=== PATIENT | female | born 1975 | race Caucasian/White ===

== ENCOUNTER 2017-09-06 20:33 | Emergency (ER) | payer MEDICARE ==
[~2017-09-06] VITALS: Ht 165.1 cm; Wt 83.9 kg
[2017-09-06] MEDS ORDERED: KETOROLAC TROMETHAMINE 30 MG INJ IM ONE (21:15)
[2017-09-06] MEDS ORDERED: KETOROLAC TROMETHAMINE 30 MG INJ ONE (21:39)
--- NOTE | 2017-09-06 21:42 | NUR ---
Patient discharged to home in stable conditon. Written and verbal after care instructions given. Patient verbalizes understanding of instructions.
== END 2017-09-06 21:44 | disposition home or self-care (01) ==
LOC: ER 20:34
DX: S89.91XA Unspecified injury of right lower leg, initial encounter (principal); M79.7 Fibromyalgia; Z90.49 Acquired absence of other specified parts of digestive tract; M19.90 Unspecified osteoarthritis, unspecified site; W01.0XXA Fall on same level from slipping, tripping and stumbling without subsequent striking against object, initial encounter; Y92.89 Other specified places as the place of occurrence of the external cause; Y93.E1 Activity, personal bathing and showering; Z88.2 Allergy status to sulfonamides
CPT/HCPCS: 29505; 96372; 99283; A4663; J1885